=== PATIENT | male | born 1945 | race Caucasian/White ===

== ENCOUNTER → 2017-03-13 | Outpatient (CLI) | payer MEDICARE, MEDICAID ==
[~2017-03-13] MED LIST: ADV250/50 INH; ALB17R INH; ALBU8.5H INH; ALL300 PO; ALLO-2 PO; AMO500 PO; ASPI-1441 PO; DAR100 PO; FISH OIL 1,2001 CAP PO; GARL10005 PO; GAV PO; MELO-207 PO; MET10 PO; METO-259 PO; METO25TA23 PO; METO25TA89 PO; METO25TA91 PO; MULT-817 PO; NAPR220C12 PO; NYST15CR33 TP; OMEP-125 PO; OMEP-153 PO; OMEP10CA40 PO; PRED-1 PO; TIO18R INH; TRA50 PO; TRIA15CR40 TP; UMEC62.5 INH
== END ==
LOC: LAB 15:56
PROVIDERS: ATTEND Urology
DX: R97.20 Elevated prostate specific antigen [PSA] (principal)
CPT/HCPCS: 36415; 84154

== ENCOUNTER → 2017-06-04 | Outpatient (CLI) | payer MEDICARE, MEDICAID | LOC: LAB 10:15 | PROVIDERS: ATTEND Urology | DX: R97.20 Elevated prostate specific antigen [PSA] (principal) | CPT/HCPCS: 36415; 84153 ==

== ENCOUNTER → 2017-07-17 | Outpatient (CLI) | payer MEDICARE, MEDICAID | LOC: LAB 10:52 | PROVIDERS: ATTEND Nurse Practitioner Primary Care | DX: R60.9 Edema, unspecified (principal); R06.02 Shortness of breath | CPT/HCPCS: 36415; 81001; 82040; 82247; 82310; 82374; 82435; 82565; 82947; 83880; 84075; 84132; 84155; 84295; 84443; 84450; 84460; 84520 ==

== ENCOUNTER → 2017-07-18 | Outpatient (CLI) | payer MEDICARE, MEDICAID ==
--- NOTE | 2017-07-18 14:41 | EKG ---
[place] [facility] [place] NAME: ADY BARROW : [id number] MR: [id number] V: [id number] EXAM DATE: ORDERING PHYSICIAN: STANLEY VIRGEN TECHNOLOGIST: VERONIKA Coronado Reason : Blood Pressure : / mmHG Vent. Rate : 072 BPM Atrial Rate : 072 BPM P-R Int : 150 ms QRS Dur : 082 ms QT Int : 416 ms P-R-T Axes : 071 050 024 degrees QTc Int : 455 ms Sinus rhythm with frequent premature ventricular complexes Otherwise normal ECG No previous ECGs available Referred By: PARAM Confirmed By:
== END ==
LOC: RESP 14:28
PROVIDERS: ATTEND Nurse Practitioner Primary Care
DX: R79.89 Other specified abnormal findings of blood chemistry (principal); R06.02 Shortness of breath
CPT/HCPCS: 93005

== ENCOUNTER 2017-12-06 07:36 | Emergency (ER) | payer MEDICARE, MEDICAID ==
--- NOTE | 2017-12-06 07:37 | ER Report ---
History and Physical Time Seen By MD: 07:37 HPI/ROS CHIEF COMPLAINT: Dizziness, lightheadedness, neck pain HISTORY OF PRESENT ILLNESS: Patient is a 72-year-old male here with complaints of neck pain, dizziness, lightheadedness which is been worsening over the past several days. Patient denies trauma to the head or neck, neurological deficits. He does report having worsening visual acuity over the past several weeks. Patient denies fevers, chills, chest pain, chest tightness, abdominal pain, nausea, vomiting. Patient does report intermittent wheezing and exertional shortness of breath at time. Patient reports that he did quit smoking george roximately one month ago. Patient denies dysphagia, odynophagia, neck stiffness. He does complain of mild midline C-spine tenderness but his primary neck pain is located in the paraspinal musculature and on the right lateral neck. No carotid bruits were auscultated at time of evaluation. Patient was hemodynamically stable throughout course. He does have history significant for cardiac ablation and denies current anticoagulation use. REVIEW OF SYSTEMS: Constitutional: No fever, no chills. Eyes: No discharge, + progressive worsening visual acuity in all visual kemp ENT: No sore throat, + b/l neck pain Cardiovascular: No chest pain, no palpitations. Respiratory: No cough, + exertional wheezing and shortness of breath. Gastrointestinal: No abdominal pain, no vomiting. Genitourinary: No hematuria. Musculoskeletal: No back pain, + paraspinal c spine tenderness and mild midline c spine tenderness Skin: No rashes. Neurological: No headache. Allergies: Coded Allergies: No Known Drug Allergies (Verified , 07/28/13) Home Meds Active Scripts Triamcinolone Acetonide 0.1% Cr 15 Gm Tube (TRIAMCINOLONE ACETONIDE 0.1% CREAM) 15 Gm Cream..g., 30 GM TP QDAY, #30 GM 2 Refills Prov:STANLEY VIRGEN MD 11/11/17 Omeprazole (OMEPRAZOLE) 20 Mg Capsule.dr, 1 CAP PO QDAY, #90 CAP 1 Refill Prov:STANLEY VIRGEN MD 07/31/17 Metoprolol Succinate (METOPROLOL SUCCINATE) 25 Mg Tab.er.24h, 1 TAB PO QDAY, #90 TAB 4 Refills Prov:STANLEY VIRGEN MD 01/14/17 Albuterol Sulfate 90 Mcg/Act (PROAIR HFA 90 MCG/ACT) 8.5 Gm Hfa.aer.ad, 2 PUFF INH Q6H PRN for whe, #1 INHALER 6 Refills Prov:STANLEY VIRGEN MD 01/14/17 Allopurinol (Allopurinol) 300 Mg Tablet, 1 TAB PO DAILY, #90 TAB 4 Refills Prov:STANLEY VIRGEN MD 01/14/17 Reported Medications Aspirin (Aspirin Ec) 81 Mg Tablet.dr, 81 MG PO DAILY 10/19/09 Hx Smoking: Yes (HAS SMOKDE SINCE AG 11. SMOKES 1 PACK PER MONTH) Smoking Status: Current: Every Day Smoker, Current: Some Days Smoker Exposure to Second Hand Smoke?: No Hx Substance Use Disorder: No Hx Alcohol Use: No Constitutional Vital Sign - Last 24 Hours 12/06/17 07:38 Temp 98.3 Pulse 55 Resp 20 B/P (MAP) 169/101 Pulse Ox 93 O2 Delivery Room Air Physical Exam General Appearance: The patient is alert, has no immediate need for airway protection and no signs of toxicity. NAD Eyes: Pupils equal and round no pallor or injection. ENT, Mouth: Mucous membranes are moist, No carotid bruits auscultated Respiratory: There are no retractions, lungs are clear to auscultation. Cardiovascular: Regular rate and rhythm. Gastrointestinal: Abdomen is soft and non tender, no masses, bowel sounds normal. Neurological: No focal neuro deficits Skin: Warm and dry, no rashes. Musculoskeletal: Neck is supple and + tender in the c spine paraspinal musculature Extremities are nontender, nonswollen and have full range of motion. DIFFERENTIAL DIAGNOSIS: After history and physical exam differential diagnosis was considered for dizziness including but not limited to peripheral and central causes of vertigo, orthostatic causes including dehydration, and blood loss Medical Decision Making Data Points Result Diagram: 12/06/17 0810 12/06/17 0810 Laboratory Hematology Test 12/06/17 08:10 12/06/17 08:24 Red Blood Count 5.26 M/uL (4.00-5.60) Mean Corpuscular Volume 94.1 fL (80.0-96.0) Mean Corpuscular Hemoglobin 31.9 pg (26.0-33.0) Mean Corpuscular Hemoglobin Concent 33.9 g/dL (32.0-36.0) Red Cell Distribution Width 14.1 % (11.5-14.5) Mean Platelet Volume 9.2 fL (7.2-11.1) Neutrophils (%) (Auto) 64.5 % (39.4-72.5) Lymphocytes (%) (Auto) 23.5 % (17.6-49.6) Monocytes (%) (Auto) 9.2 % (4.1-12.4) Eosinophils (%) (Auto) 2.0 % (0.4-6.7) Basophils (%) (Auto) 0.8 % (0.3-1.4) Nucleated RBC Relative Count (auto) 0.0 /100WBC Neutrophils # (Auto) 4.6 K/uL (2.0-7.4) Lymphocytes # (Auto) 1.7 K/uL (1.3-3.6) Monocytes # (Auto) 0.6 K/uL (0.3-1.0) Eosinophils # (Auto) 0.1 K/uL (0.0-0.5) Basophils # (Auto) 0.1 K/uL (0.0-0.1) Nucleated RBC Absolute Count (auto) 0.00 K/uL Sodium Level 141 mmol/L (137-145) Potassium Level 4.3 mmol/L (3.5-5.0) Chloride Level 98 mmol/L (98-107) Carbon Dioxide Level 32 mmol/L (22-30) Blood Urea Nitrogen 15 mg/dl (9-21) Creatinine 1.00 mg/dl (0.66-1.25) Glomerular Filtration Rate Calc > 60.0 Random Glucose 153 mg/dl (75-110) Calcium Level 9.5 mg/dl (8.4-10.2) Total Bilirubin 1.1 mg/dl (0.2-1.3) Aspartate Amino Transf (AST/SGOT) 22 U/L (0-35) Alanine Aminotransferase (ALT/SGPT) 35 U/L (0-56) Alkaline Phosphatase 83 U/L (0-126) Troponin I < 0.012 ng/ml Total Protein 7.8 g/dl (6.3-8.2) Albumin 4.3 g/dl (3.5-5.0) Urine Color Yellow Urine Clarity Clear Urine pH 6.0 pH (4.8-9.5) Urine Specific [place] 1.010 Urine Protein Negative mg/dL (NEGATIVE) Urine Glucose (UA) Negative mg/dL (NEGATIVE) Urine Ketones Negative mg/dL (NEGATIVE) Urine Blood Small (NEGATIVE) Urine Nitrite Negative (NEGATIVE) Urine Bilirubin Negative (NEGATIVE) Urine Urobilinogen Negative mg/dL (0.2-1.9) Urine Leukocyte Esterase Negative (NEGATIVE) Urine RBC 2 /HPF (0-2/HPF) Urine WBC <1 /HPF (0-5/HPF) Urine Squamous Epithelial Cells Few /LPF (</=FEW) Urine Bacteria Negative /HPF (NONE-FEW) Urine Mucus None /HPF (NONE-FEW) Chemistry Test 12/06/17 08:10 12/06/17 08:24 White Blood Count 7.1 k/uL (4.5-11.0) Red Blood Count 5.26 M/uL (4.00-5.60) Hemoglobin 16.8 g/dL (14.0-18.0) Hematocrit 49.5 % (42.0-52.0) Mean Corpuscular Volume 94.1 fL (80.0-96.0) Mean Corpuscular Hemoglobin 31.9 pg (26.0-33.0) Mean Corpuscular Hemoglobin Concent 33.9 g/dL (32.0-36.0) Red Cell Distribution Width 14.1 % (11.5-14.5) Platelet Count 122 K/uL (150-450) Mean Platelet Volume 9.2 fL (7.2-11.1) Neutrophils (%) (Auto) 64.5 % (39.4-72.5) Lymphocytes (%) (Auto) 23.5 % (17.6-49.6) Monocytes (%) (Auto) 9.2 % (4.1-12.4) Eosinophils (%) (Auto) 2.0 % (0.4-6.7) Basophils (%) (Auto) 0.8 % (0.3-1.4) Nucleated RBC Relative Count (auto) 0.0 /100WBC Neutrophils # (Auto) 4.6 K/uL (2.0-7.4) Lymphocytes # (Auto) 1.7 K/uL (1.3-3.6) Monocytes # (Auto) 0.6 K/uL (0.3-1.0) Eosinophils # (Auto) 0.1 K/uL (0.0-0.5) Basophils # (Auto) 0.1 K/uL (0.0-0.1) Nucleated RBC Absolute Count (auto) 0.00 K/uL Glomerular Filtration Rate Calc > 60.0 Calcium Level 9.5 mg/dl (8.4-10.2) Total Bilirubin 1.1 mg/dl (0.2-1.3) Aspartate Amino Transf (AST/SGOT) 22 U/L (0-35) Alanine Aminotransferase (ALT/SGPT) 35 U/L (0-56) Alkaline Phosphatase 83 U/L (0-126) Troponin I < 0.012 ng/ml Total Protein 7.8 g/dl (6.3-8.2) Albumin 4.3 g/dl (3.5-5.0) Urine Color Yellow Urine Clarity Clear Urine pH 6.0 pH (4.8-9.5) Urine Specific [place] 1.010 Urine Protein Negative mg/dL (NEGATIVE) Urine Glucose (UA) Negative mg/dL (NEGATIVE) Urine Ketones Negative mg/dL (NEGATIVE) Urine Blood Small (NEGATIVE) Urine Nitrite Negative (NEGATIVE) Urine Bilirubin Negative (NEGATIVE) Urine Urobilinogen Negative mg/dL (0.2-1.9) Urine Leukocyte Esterase Negative (NEGATIVE) Urine RBC 2 /HPF (0-2/HPF) Urine WBC <1 /HPF (0-5/HPF) Urine Squamous Epithelial Cells Few /LPF (</=FEW) Urine Bacteria Negative /HPF (NONE-FEW) Urine Mucus None /HPF (NONE-FEW) Urinalysis Test 12/06/17 08:24 Urine Color Yellow Urine Clarity Clear Urine pH 6.0 pH (4.8-9.5) Urine Specific [place] 1.010 Urine Protein Negative mg/dL (NEGATIVE) Urine Glucose (UA) Negative mg/dL (NEGATIVE) Urine Ketones Negative mg/dL (NEGATIVE) Urine Blood Small (NEGATIVE) Urine Nitrite Negative (NEGATIVE) Urine Bilirubin Negative (NEGATIVE) Urine Urobilinogen Negative mg/dL (0.2-1.9) Urine Leukocyte Esterase Negative (NEGATIVE) Urine RBC 2 /HPF (0-2/HPF) Urine WBC <1 /HPF (0-5/HPF) Urine Squamous Epithelial Cells Few /LPF (</=FEW) Urine Bacteria Negative /HPF (NONE-FEW) Urine Mucus None /HPF (NONE-FEW) EKG/Imaging EKG Interpretation 12 lead EKG: Sinus rhythm with PVCs, ventricular rate 67, QTc interval 450 without ischemic changes. Rhythm: normal sinus rhythm with PVCs [place]: normal QRS: normal ST segments: normal Monitor Interpretation: NSR with PVCs Imaging EXAMINATION: CTA Neck with intravenous contrast CTA Head with intravenous contrast HISTORY: Dizziness. TECHNIQUE: Overlapping thin sections were obtained during a bolus of IV contrast from the aortic arch through the vertex. Reconstruction of the source data set includes multiplanar 2D in the sagittal and coronal planes, and 3D coronal thin slab MIP series. Retrofit Installer images have been stored on PACS. Stenosis of the internal carotid arteries are calculated using NASCET criteria. One of the following dose optimization techniques was utilized in the performance of this exam: Automated exposure control; adjustment of the mA and/or kV according to the patient's size; or use of an iterative reconstruct ion technique. Specific details can be referenced in the facility's radiology CT exam operational policy. CONTRAST: 75 mL of IV Isovue-370 COMPARISON: None available. FINDINGS: Aortic arch and great vessels: Negative. Right CCA / ICA: Mild calcified plaque in the proximal internal carotid artery. No significant stenosis. Left CCA / ICA: Mild calcified plaque in the common carotid bifurcation and proximal internal carotid artery. No significant stenosis. Vertebro-basilar: Mild calcified plaque in the right intradural vertebral artery. No significant stenosis. [place]: Negative. CRYSTAL circulation: Negative. MCA circulation: Negative. VP ANALYSIS circulation: Negative. Additional non-angiographic findings: Multilevel degenerative disc disease and facet hypertrophy in the cervical spine. IMPRESSION: 1. No significant stenosis, vessel occlusion, or aneurysm in the head and neck. 2. Multilevel degenerative disc disease and facet hypertrophy in the cervical spine. Location: [facility] Patient: Sen Ortiz : 1945 Visit/Account:[id number] Date of Sevice: 12/06/2017 EXAMINATION: CTA Neck with intravenous contrast CTA Head with intravenous contrast HISTORY: Dizziness. TECHNIQUE: Overlapping thin sections were obtained during a bolus of IV contrast from the aortic arch through the vertex. Reconstruction of the source data set includes multiplanar 2D in the sagittal and coronal planes, and 3D coronal thin slab MIP series. Retrofit Installer images have been stored on PACS. Stenosis of the internal carotid arteries are calculated using NASCET criteria. One of the following dose optimization techniques was utilized in the performance of this exam: Automated exposure control; adjustment of the mA and/or kV according to the patient's size; or use of an iterative reconstruction technique. Specific details can be referenced in the facility's radiology CT exam operational policy. CONTRAST: 75 mL of IV Isovue-370 COMPARISON: None available. FINDINGS: Aortic arch and great vessels: Negative. Right CCA / ICA: Mild calcified plaque in the proximal internal carotid artery. No significant stenosis. Left CCA / ICA: Mild calcified plaque in the common carotid bifurcation and proximal internal carotid artery. No significant stenosis. Vertebro-basilar: Mild calcified plaque in the right intradural vertebral artery. No significant stenosis. [place]: Negative. CRYSTAL circulation: Negative. MCA circulation: Negative. VP ANALYSIS circulation: Negative. Additional non-angiographic findings: Multilevel degenerative disc disease and facet hypertrophy in the cervical spine. IMPRESSION: 1. No significant stenosis, vessel occlusion, or aneurysm in the head and neck. 2. Multilevel degenerative disc disease and facet hypertrophy in the cervical spine. ED Course/Re-evaluation ED Course Patient is a 72-year-old male here with complaints of bilateral neck pain, dizziness, intermittent lightheadedness which has been worsening over the past several days. Patient denies focal neurological deficits with muscle weakness, numbness or paresthesias. Patient denies chest pain, anginal symptoms, dysphasia or odynophagia. Patient is afebrile, hemodynamically stable and denies recent we akness, fevers, nausea, vomiting, urinary symptoms. Decision was made to complete an EKG which is unremarkable aside from intermittent PVCs. Labs and CT of the abdomen cord completed to rule out vascular abnormalities. CT imaging showed no vascular abnormalities of the head or neck. Patient was advised to take naproxen and Flexeril as needed for pain control to follow up with PCP. Patient was found of a small amount of blood in the urine with no signs of infection which she was advised to follow-up with his PCP or guarding. Lab findings were unremarkable. Patient was updated regarding these findings. Decision to Disposition Date: Dec 06, 2017 Decision to Disposition Time: 09:32 Depart Departure Latest Vital Signs Vital Signs Date Time Temp Pulse Resp B/P (MAP) Pulse Ox O2 Delivery O2 Flow Rate FiO2 12/06/17 07:38 98.3 55 20 169/101 93 Room Air Impression: Primary Impression: Neck pain Additional Impression: Dizziness Condition: Improved Disposition: HOME OR SELF-CARE Referrals: STANLEY VIRGEN MD (PCP) New Scripts Cyclobenzaprine Hcl (CYCLOBENZAPRINE HCL) 10 Mg Tablet 10 MG PO Q8H PRN for MUSCLE SPASMS, #20 TAB 0 Refills Prov: GEORGINA WERNER DO 12/06/17 Naproxen Sodium (ALEVE) 220 Mg Capsule 440 MG PO TID, #30 CAPSULE Prov: GEORGINA WERNER DO 12/06/17 Patient Instructions: Dizziness (ED), Neck Pain (ED) Additional Instructions: Please follow-up with her family doctor in the next week. Imaging studies of your neck and head showed no signs of vascular abnormality or bleeding. Your lab results were found to be normal with normal electrolytes, blood counts. There was a very small amount of blood found in the urine but no signs of infection, please follow-up with your family doctor to review these findings. Please return promptly with worsening symptoms. You may take ibuprofen or naproxen as needed for neck pain. You were given a prescription for Flexeril which is a muscle relaxant which he may take as needed for suspected neck muscle spasm. Please do not drive or operate heavy machinery while on this medication as it may make you drowsy. Problem Qualifiers GEORGINA WERNER DO Dec 06, 2017 07:37
--- NOTE | 2017-12-06 08:18 | EKG ---
FACILITY: [facility] PATIENT NAME: ADY BARROW : [id number] MR: [id number] V: [id number] EXAM DATE: ORDERING PHYSICIAN: GEORGINA WERNER TECHNOLOGIST: KAMILLA Test Reason : DIZZINESS Blood Pressure : / mmHG Vent. Rate : 067 BPM Atrial Rate : 067 BPM P-R Int : 142 ms QRS Dur : 072 ms QT Int : 426 ms P-R-T Axes : 042 025 028 degrees QTc Int : 450 ms Sinus rhythm with occasional premature ventricular complexes Otherwise normal ECG When compared with ECG of 18-JUL-2017 14:31, Inferior T flattening has resolved Confirmed by GURPREET MENDOZA ([id number]) on 12/06/2017 8:41:05 PM Referred By: Confirmed By:GURPREET MENDOZA
[2017-12-06 08:19] LABS: PLATELET COUNT, AUTOMATED 122 K/uL (150-450)
[2017-12-06] MEDS ORDERED: IOPAMIDOL 76% 75 ML INFUS BTL 75 ML ONE (08:43)
[2017-12-06] MEDS ORDERED: NS(*) 0.9% 50 ML BAG 50 ML ONE (08:43)
--- NOTE | 2017-12-06 09:28 | RADIOLOGY IMAGING REPORT ---
FACILITY: [facility] [place] PATIENT NAME: Sen Ortiz : 1945 MR: [id number] V: [id number] EXAM DATE: ORDERING PHYSICIAN: GEORGINA WERNER TECHNOLOGIST: Location: [facility] [place] Patient: Sen Ortiz : 1945 Visit/Account:[id number] Date of Sevice: 12/06/2017 EXAMINATION: CTA Neck with intravenous contrast CTA Head with intravenous contrast HISTORY: Dizziness. TECHNIQUE: Overlapping thin sections were obtained during a bolus of IV contrast from the aortic ar ch through the vertex. Reconstruction of the source data set includes multiplanar 2D in the sagittal and coronal planes, and 3D coronal thin slab MIP series. Developing Machine Operator images have been stored on PA CS. Stenosis of the internal carotid arteries are calculated using NASCET criteria. One of the following dose optimization techniques was utilized in the performance of this exam: Autom ated exposure control; adjustment of the mA and/or kV according to the patient's size; or use of an i terative reconstruction technique. Specific details can be referenced in the facility's radiology C T exam operational policy. CONTRAST: 75 mL of IV Isovue-370 COMPARISON: None available. FINDINGS: Aortic arch and great vessels: Negative. Right CCA / ICA: Mild calcified plaque in the proximal internal carotid artery. No significant sten osis. Left CCA / ICA: Mild calcified plaque in the common carotid bifurcation and proximal internal carot id artery. No significant stenosis. Vertebro-basilar: Mild calcified plaque in the right intradural vertebral artery. No significant st enosis. [place]: Negative. CRYSTAL circulation: Negative. MCA circulation: Negative. EQUESTRIAN TRAINER circulation: Negative. Additional non-angiographic findings: Multilevel degenerative disc disease and facet hypertrophy in the cervical spine. IMPRESSION: 1. No significant stenosis, vessel occlusion, or aneurysm in the head and neck. 2. Multilevel degenerative disc disease and facet hypertrophy in the cervical spine. Report Dictated By: Trae Carmen MD at 12/06/2017 9:15 AM Report E-Signed By: Trae Carmen MD at 12/06/2017 9:23 AM WSN:[email or web address]
--- NOTE | 2017-12-06 09:29 | RADIOLOGY IMAGING REPORT ---
FACILITY: [facility] PATIENT NAME: Sen Ortiz : 1945 MR: [id number] V: [id number] EXAM DATE: ORDERING PHYSICIAN: GEORGINA WERNER TECHNOLOGIST: Location: [facility] Patient: Sen Ortiz : 1945 Visit/Account:[id number] Date of Sevice: 12/06/2017 EXAMINATION: CTA Neck with intravenous contrast CTA Head with intravenous contrast HISTORY: Dizziness. TECHNIQUE: Overlapping thin sections were obtained during a bolus of IV contrast from the aortic ar ch through the vertex. Reconstruction of the source data set includes multiplanar 2D in the sagittal and coronal planes, and 3D coronal thin slab MIP series. Flight Attendant/Inflight Manager images have been stored on PA CS. Stenosis of the internal carotid arteries are calculated using NASCET criteria. One of the following dose optimization techniques was utilized in the performance of this exam: Autom ated exposure control; adjustment of the mA and/or kV according to the patient's size; or use of an i terative reconstruction technique. Specific details can be referenced in the facility's radiology C T exam operational policy. CONTRAST: 75 mL of IV Isovue-370 COMPARISON: None available. FINDINGS: Aortic arch and great vessels: Negative. Right CCA / ICA: Mild calcified plaque in the proximal internal carotid artery. No significant sten osis. Left CCA / ICA: Mild calcified plaque in the common carotid bifurcation and proximal internal carot id artery. No significant stenosis. Vertebro-basilar: Mild calcified plaque in the right intradural vertebral artery. No significant st enosis. [place]: Negative. CRYSTAL circulation: Negative. MCA circulation: Negative. MACHINE WOOD SANDER circulation: Negative. Additional non-angiographic findings: Multilevel degenerative disc disease and facet hypertrophy in the cervical spine. IMPRESSION: 1. No significant stenosis, vessel occlusion, or aneurysm in the head and neck. 2. Multilevel degenerative disc disease and facet hypertrophy in the cervical spine. Report Dictated By: Trae Carmen MD at 12/06/2017 9:15 AM Report E-Signed By: Trae Carmen MD at 12/06/2017 9:23 AM WSN:[email or web address]
[2017-12-06 09:30] VITALS: BP 154/89
[2017-12-06] MEDS ORDERED: NAPR220C12 PO (09:35)
[2017-12-06] MEDS ORDERED: CYCL10TA29 PO (09:35)
== END 2017-12-06 09:45 | disposition home or self-care (01) ==
LOC: ER 07:40
DX: M54.2 Cervicalgia (principal); R42 Dizziness and giddiness
CPT/HCPCS: 70496; 70498; 81001; 84484; 85025; 93005; 99284; J7050; Q9967; 82040; 82247; 82310; 82374; 82435; 82565; 82947; 84075; 84132; 84155; 84295; 84450; 84460; 84520

== ENCOUNTER → 2018-01-22 | Outpatient (CLI) | payer MEDICARE, MEDICAID ==
[~2018-01-22] MED LIST changes: +CYCL10TA29 PO
--- NOTE | 2018-01-22 08:34 | EKG ---
FACILITY: [facility] - [place] PATIENT NAME: ADY BARROW : [id number] MR: [id number] V: [id number] EXAM DATE: ORDERING PHYSICIAN: STANLEY VIRGEN TECHNOLOGIST: CLEMENTE Test Reason : DIZZINESS, SOB Blood Pressure : / mmHG Vent. Rate : 056 BPM Atrial Rate : 056 BPM P-R Int : 144 ms QRS Dur : 084 ms QT Int : 454 ms P-R-T Axes : 056 026 028 degrees QTc Int : 438 ms Sinus bradycardia Otherwise normal ECG When compared with ECG of 06-DEC-2017 08:13, premature ventricular complexes are no longer present ST no longer depressed in Anterior leads Referred By: MD VIRGEN Confirmed By:
== END ==
LOC: CARD 08:16
PROVIDERS: ATTEND Internal Medicine
DX: R94.31 Abnormal electrocardiogram [ECG] [EKG] (principal)

== ENCOUNTER → 2018-01-23 | Outpatient (CLI) | payer MEDICARE, MEDICAID ==
[2018-01-23 09:49] LABS: PLATELET COUNT, AUTOMATED 137 K/uL (150-450)
[2018-01-23 10:02] LABS: LDL CHOLESTEROL 70 mg/dl
== END ==
LOC: LAB 09:25
PROVIDERS: ATTEND Internal Medicine
DX: R97.20 Elevated prostate specific antigen [PSA] (principal); E11.9 Type 2 diabetes mellitus without complications; J44.9 Chronic obstructive pulmonary disease, unspecified; I49.3 Ventricular premature depolarization
CPT/HCPCS: 36415; 82040; 82247; 82310; 82374; 82435; 82465; 82565; 82947; 83036; 83718; 84075; 84132; 84155; 84295; 84443; 84450; 84460; 84478; 84520; 84550; 85025

== ENCOUNTER → 2018-02-12 | Outpatient (CLI) | payer MEDICARE, MEDICAID ==
[~2018-02-12] MED LIST changes: +METF500T4 PO
--- NOTE | 2018-02-13 12:32 | RT HOLTER TEST ---
FAC[place]: [facility] [place]IENT NAME: ADY BARROW : [id number] MR: [id number] V: [id number] EXAM DATE: ORDERING PHYSICIAN: STANLEY VIRGEN TECHNOLOGIST: HELGA Hook-up date: 2018-02-12 08:58:00 Duration: 22:51:00 Test Indications: DIZZINESS Medications: 72830 QRS complexes 6033 Ventricular ectopics which represent 6 % of total QRS comp. 87 Supraventricular ectopics which represent <1 % of total QRS comp. * Paced QRS complexes which represent % of total QRS comp. VENTRICULAR ECTOPY 5951 Isolated 217 Bigeminal Cycles 38 Couplets 2 Runs 6 Beats in Runs 3 Beats LONGEST at 57 BPM at 09:19:39 2018-02-12 3 Beats FASTEST at 69 BPM at 13:54:33 2018-02-12 SUPRAVENTRICULAR ECTOPY 87 Isolated 0 Couplets 0 Runs 0 Beats in Runs * Beats LONGEST at * BPM at :: -- * Beats FASTEST at * BPM at :: -- HEART RATES 44 MIN at 04:23:59 2018-02-13 64 AVG 96 MAX at 17:30:38 2018-02-12 LONGEST RR 1.704 secs at 04:23:52 2018-02-13 S-T LEVELS Channel 1 -12.800 mm MIN at 08:58:00 2018-02-12 -12.800 mm MAX at 08:58:00 2018-02-12 Channel 2 -12.800 mm MIN at 08:58:00 2018-02-12 -12.800 mm MAX at 08:58:00 2018-02-12 Channel 3 -12.800 mm MIN at 08:58:00 2018-02-12 -12.800 mm MAX at 08:58:00 2018-02-12 Frequent ventricular ectopy with many couplets and a few triplets. Some of these may represent aberra nt conduction of supraventricular ectopy. Rare supraventricular ectopy. No couplets, triplets, runs. Sinus bradycardia was noted during usual sleeping hours. No pauses of more than two (2.0) seconds. Confirmed by AYAD RICHARDSON ([id number]) on 02/13/2018 12:31:46 PM Referred By: Overread By: AYAD RICHARDSON
== END ==
LOC: RESP 08:27
PROVIDERS: ATTEND Internal Medicine
DX: I49.3 Ventricular premature depolarization (principal); R00.1 Bradycardia, unspecified
CPT/HCPCS: 93225

== ENCOUNTER → 2018-05-27 | Outpatient (CLI) | payer MEDICARE, MEDICAID ==
[2018-05-27 12:15] LABS: LDL CHOLESTEROL 58 mg/dl
== END ==
LOC: LAB 11:21
PROVIDERS: ATTEND Internal Medicine
DX: E11.9 Type 2 diabetes mellitus without complications (principal); R42 Dizziness and giddiness; I49.3 Ventricular premature depolarization
CPT/HCPCS: 36415; 82040; 82043; 82247; 82310; 82374; 82435; 82465; 82565; 82947; 83036; 83718; 84075; 84132; 84155; 84295; 84450; 84460; 84478; 84520

== ENCOUNTER → 2018-06-16 | Outpatient (CLI) | payer MEDICARE, MEDICAID | LOC: LAB 15:59 | PROVIDERS: ATTEND Urology | DX: R97.20 Elevated prostate specific antigen [PSA] (principal) | CPT/HCPCS: 36415; 84153 ==